=== PATIENT | female | born 1955 | race Hispanic/Latino ===

== ENCOUNTER 2018-05-10 05:57 | Emergency (ER) | payer OTHER ==
--- NOTE | 2018-05-10 07:27 | ED PDOC ---
Arrival/HPI - General Chief Complaint: Lower Extremity Problem/Injury Time Seen by Provider: 05/10/18 07:08 Historian: Patient - History of Present Illness Narrative History of Present Illness (Text): 05/10/18 07:23 Pt is a 62 yo F with no significant PMH presents with b/l LE pain. Patient states that pain has been present for years, however it has worsened over the last few days. She states that pain is from the calf down, greater on the right than the left, and is worsened with ambulation. However, at rest patient states that pain is manageable. Patient also admits to numbness in the right foot and both cold feet bilaterally. Patient denies CP, SOB, n/v/d, abdominal pain, fever , chills, VALENCIA, dizziness, LE edema/swelling, or erythema. No PMD Time/Duration: < week Symptom Onset: Gradual Symptom Course: Unchanged Quality: Throbbing Context: Walking Past Medical History - Provider Review Nursing Documentation Reviewed: Yes - Cardiac Hx Cardiac Disorders: No - Psychiatric Hx Substance Use: No Family/Social History - Physician Review Nursing Documentation Reviewed: Yes Family/Social History: No Known Family HX Smoking Status: Heavy Smoker > 10 Cigarettes Daily Hx Alcohol Use: No Hx Substance Use: No Allergies/Home Meds Allergies/Adverse Reactions: Allergies No Known Allergies Allergy (Verified 05/10/18 07:28) Home Medications: Home Meds Medication Instructions Recorded Confirmed No Known Home Med 05/10/18 05/10/18 Review of Systems - Physician Review All systems were reviewed & negative as marked: Yes - Review of Systems Constitutional: Normal Eyes: Normal ENT: Normal Respiratory: Normal Cardiovascular: Normal Gastrointestinal: Normal Genitourinary Female: Normal Musculoskeletal: Other (b/l LE pain R > L, R foot numbness) Skin: Normal Neurological: Normal Endocrine: Normal Hemo/Lymphatic: Normal Psychiatric: Normal Physical Exam Vital Signs Reviewed: Yes Vital Signs Temp Pulse Resp BP Pulse Ox 05/10/18 09:28 110 H 18 137/92 H 99 05/10/18 06:18 97.5 F L 97 H 18 170/96 H 99 Temperature: Afebrile Blood Pressure: Normal Pulse: Regular Respiratory Rate: Normal Appearance: Positive for: Non-Toxic Pain Distress: Moderate Mental Status: Positive for: Alert and Oriented X 3 - Systems Exam Head: Present: Atraumatic, Normocephalic Pupils: Present: PERRL Extroacular Muscles: Present: EOMI Conjunctiva: Present: Normal Mouth: Present: Moist Mucous Membranes Neck: Present: Normal Range of Motion Respiratory/Chest: Present: Clear to Auscultation, Good Air Exchange. No: Respiratory Distress, Accessory Muscle Use Cardiovascular: Present: Regular Rate and Rhythm, Normal S1, S2. No: Murmurs Abdomen: No: Tenderness, Distention, Peritoneal Signs Back: Present: Normal Inspection Upper Extremity: Present: Normal Inspection. No: Cyanosis, Edema Lower Extremity: Present: CALF TENDERNESS (right). No: Edema, NORMAL PULSES (B/ L DP and TP pulses not palpable or dopplerable) Neurological: Present: GCS=15, CN II-XII Intact, Speech Normal Skin: Present: Warm, Dry, Normal Color. No: Rashes Psychiatric: Present: Alert, Oriented x 3, Normal Insight, Normal Concentration Medical Decision Making ED Course and Treatment: 05/10/18 07:34 62 yo F presents with b/l LE pain R > L. Plan: - CBC, CMP - Coags - Cardiac ISO - VBG shock - EKG - Chest X-Ray - B/L Arterial duplex - Reassess and disposition 05/10/18 07:46 EKG reviewed shows sinus tachycardia, LBBB, rate 105. 05/10/18 09:09 Magnesium 1.5. Repleted with 2 gm Mag sulfate IVPB. Troponin 0.13, patient reassessed, no chest pain, pressure, or palpitations. Cased discussed with inlayer, Dr. Genao, who states she is not a code heart candidate. Sgarbossa's Criteria for NM in Left Bundle Branch Block negative (0). Chest X-Ray reviewed by radiologist; Impression: no active pulmonary disease. 05/10/18 09:22 Lower Extremity Arterial Duplex Findings: The resting CHRIS's are severely abnormal: Unobtainable on right, 0.35 on Left. Impression: Severely abnormal CHRIS and PVR exam at rest. The waveforms at all levels are nearly flat. Findings consistent with aortoiliac disease. Discussed findings with Dr. Brad Restrepo, who states that case can be managed at [facility], requests MRA abdomen/lower extremity runoff, and 1/2 NS at 80 ml/hr. Heparin bolus + drip started. 05/10/18 09:[address] Pike, who agrees with plan and accepts patient under hospitalist service. Case discussed with Dr. An, who agrees with plan and accepts patient for ICU admission. - Lab Interpretations Lab Results: 05/10/18 07:40 05/10/18 07:40 Lab Results 05/10/18 07:40: pO2 41, VBG pH 7.39, VBG pCO2 39.0 L, VBG HCO3 23.6, VBG Total CO2 24.8, VBG O2 Sat (Calc) 84.0 H, VBG Base Excess -1.2 L, VBG Potassium 4.2, Sodium 138.0, Chloride 103.0, Glucose 126 H, Lactate 1.7, FiO2 21.0, Venous Blood Potassium 4.2 05/10/18 07:40: Sodium 141, Chloride 103, Potassium 4.2, Carbon Dioxide 23, Anion Gap 19, BUN 23 H, Creatinine 0.7, Est GFR ( Amer) > 60, Est GFR ( Non-Af Amer) > 60, Random Glucose 123 H, Calcium 10.3, Magnesium 1.5 L, Total Bilirubin 1.0, AST 63 H, ALT 44, Alkaline Phosphatase 57, Lactate Dehydrogenase 586, Total Creatine Kinase 313 H, CK-MB (CK-2) 7.2 H, CK-MB (CK-2) % 2.3 L, Troponin I 0.13 H*, Total Protein 7.3, Albumin 4.4, Globulin 3.0, Albumin/ Globulin Ratio 1.5 05/10/18 07:40: PT 10.1, INR 0.88 L, APTT 24.0 L 05/10/18 07:40: WBC 12.9 H, RBC 4.19, Hgb 14.3, Hct 42.0, MCV 100.2, MCH 34.1, MCHC 34.0, RDW 13.0, Plt Count 198, MPV 11.4 H, Gran % 82.4 H, Lymph % (Auto) 8.3 L, [place] % (Auto) 8.8 H, Eos % (Auto) 0.3 L, Baso % (Auto) 0.2, Gran # 10.66 H, Lymph # (Auto) 1.1 L, [place] # (Auto) 1.1 H, Eos # (Auto) 0.0, Baso # (Auto) 0.02 - RAD Interpretation Radiology Orders: 05/10/18 07:30 LOWER EXT ART NON-INV COMPL [US] Stat 05/10/18 07:32 CXR [CHEST PORTABLE] [RAD] Stat 05/10/18 09:27 MRA LOW EXT&ABD W/WO BI BUNDLE [MRI] Stat - Medication Orders Current Medication Orders: Sodium Chloride (Sodium Chloride 0.45%) 1,000 mls @ 80 mls/hr IV .[id number] [facility] Last Admin: 05/10/18 09:38 Dose: 80 mls/hr eMAR Start Stop Document 05/10/18 09:38 SF (Rec: 05/10/18 09:38 [id number] Intravenous Solution Start Date 05/10/18 Start Time 09:38 End Date 05/10/18 Heparin Sodium/Sodium Chloride (Heparin 41318 Units/250ml 1/2 Normal Saline) 25 ,000 units in 250 mls @ 7.838 mls/hr IV .Q24H PRN; Protocol; 18 UNITS/KG/HR PRN Reason: ADJUST RATE PER PROTOCOL Last Admin: 05/10/18 10:14 Dose: 18 units/kg/hr, 7.838 mls/hr eMAR Start Stop Document 05/10/18 10:14 SF (Rec: 05/10/18 10:16 [id number] Intravenous Solution Start Date 05/10/18 Start Time 10:16 Titration Intervention Document 05/10/18 10:14 SF (Rec: 05/10/18 10:16 [id number] Titration Intake Waste Amount 0 Container Volume 250 Titration Dosing Titration Dose 18 IV Rate 7.838 Intake/Decrease Started Discontinued Medications Aspirin (Aspirin) 325 mg PO STAT STA Stop: 05/10/18 09:51 Last Admin: 05/10/18 10:00 Dose: 325 mg Heparin Sodium (Porcine) (Heparin) 3,500 units 80 units/kg (3500 units) IV ONCE ONE PRN Reason: Protocol Stop: 05/10/18 09:40 Last Admin: 05/10/18 10:14 Dose: 3,500 units eMAR Start Stop Document 05/10/18 10:14 SF (Rec: 05/10/18 10:14 SF [id number][facility] Intravenous Solution Start Date 05/10/18 Start Time 10:10 Magnesium Sulfate (Magnesium Sulfate 2 Gm/50 Ml Water) 2 gm in 50 mls @ 50 mls/ hr IVPB ONCE ONE Stop: 05/10/18 09:52 Last Admin: 05/10/18 09:30 Dose: 50 mls/hr eMAR Start Stop Document 05/10/18 09:30 SF (Rec: 05/10/18 09:30 SF [id number]) Intravenous Solution Start Date 05/10/18 Start Time 09:30 End Date 05/10/18 End time 10:30 Total Infusion Time 60 Lorazepam (Ativan) 0.5 mg IVP ONCE ONE PRN Reason: Protocol Stop: 05/10/18 10:25 Last Admin: 05/10/18 10:34 Dose: 0.5 mg IVP Administration Document 05/10/18 10:34 SF (Rec: 05/10/18 10:35 SF [facility] [place] [id number]) Charges for Administration # of IVP Administrations 1 Morphine Sulfate (Morphine) 2 mg IVP STAT STA Stop: 05/10/18 09:09 Last Admin: 05/10/18 09:29 Dose: 2 mg MAR Pain Assessment Document 05/10/18 09:29 SF (Rec: 05/10/18 09:29 SF [facility] [place] [id number]) Pain Reassessment Is this a pain reassessment? Yes Sleep Is patient sleeping during reassessment? No Presence of Pain Presence of Pain Yes IVP Administration Document 05/10/18 09:29 SF (Rec: 05/10/18 09:29 SF [facility] [place] [id number]) Charges for Administration # of IVP Administrations 1 Disposition/Present on Arrival - Present on Arrival Any Indicators Present on Arrival: No History of DVT/PE: No History of Uncontrolled Diabetes: No Urinary Catheter: No History of Decub. Ulcer: No History Surgical Site Infection Following: None - Disposition Have Diagnosis and Disposition been Completed?: Yes Diagnosis: PAD (peripheral artery disease), NSTEMI (non-ST elevated myocardial infarction) Disposition: HOSPITALIZED Disposition Time: 11:40 Patient Plan: Admission, ICU Condition: STABLE
[2018-05-10 08:06] LABS: BASO # 0.02 K/mm3 (0.0-2.0); BASO % 0.2 % (0.0-3.0); EOS % 0.3 % (1.5-5.0); GRAN # 10.66 (1.4-6.5); GRAN % 82.4 % (50.0-68.0); HEMOGLOBIN 14.3 g/dL (12.0-16.0); LYMPH # 1.1 (1.2-3.4); LYMPH % 8.3 % (22.0-35.0); MEAN CELL VOLUME 100.2 fl (80.0-105.0); MEAN CORPUSCULAR HEMOGLOBIN 34.1 pg (25.0-35.0); MEAN PLATELET VOLUME 11.4 fl (7.0-11.0); MONO # 1.1 (0.1-0.6); MONO % 8.8 % (1.0-6.0); RBC 4.19 10^6/uL (3.5-6.1); WHITE BLOOD COUNT 12.9 10^3/ul (4.5-11.0)
[2018-05-10 08:07] LABS: VENOUS BLOOD GAS BASE EXCESS -1.2 mmol/L (0.0-2.0); VENOUS BLOOD GAS PO2 41 mm/Hg (30-55); VENOUS BLOOD PH 7.39 (7.32-7.43)
[2018-05-10 08:16] LABS: ALB/GLOB RATIO 1.5 (1.1-1.8); ALBUMIN 4.4 g/dL (3.0-4.8); ALT/SGPT 44 U/L (7-56); AST/SGOT 63 U/L (14-36); BLOOD UREA NITROGEN 23 mg/dL (7-21); CALCIUM 10.3 mg/dL (8.4-10.5); GFR AFRICAN-AMERICAN > 60; GFR NON-AFRICAN AMERICAN > 60
[2018-05-10 08:23] LABS: INR 0.88 (0.93-1.08); PROTHROMBIN TIME 10.1 SECONDS (9.4-12.5)
[2018-05-10 08:52] LABS: CK MB% 2.3 % (2.5-3.0); CK-MB 7.2 ng/mL (0.0-3.6); TROPONIN I 0.13 ng/mL
[2018-05-10] MEDS ORDERED: Magnesium Sulfate 2 gm/50 ml 2 GM/50 ML BAG IVPB ONE (08:53)
[2018-05-10] MEDS ORDERED: Morphine 2 mg/ml ISec IVP STA (09:08)
[2018-05-10] MEDS ORDERED: Heparin25000 units/250ml 1/2NS 25,000 UNITS/250 ML BAG IV PRN ×2 (09:15→09:38)
--- NOTE | 2018-05-10 09:20 | US ---
PROCEDURE: Lower extremity CHRIS exam HISTORY: Peripheral vascular disease with ischemic pain PHYSICIAN(S): Brad Restrepo MD. FINDINGS: The resting CHRIS's are severely abnormal: Unobtainable on right, 0.35 on 1 The brachial systolic pressures are symmetric. There is significant 90 mm gradient between the arm and high thigh pressures bilaterally. The high thigh PVR waveforms are severely blunted. Findings are consistent with aortoiliac disease. The calf PVR waveforms severely blunted and nearly flat. The ankle and metatarsal waveforms are severely abnormal and nearly flat IMPRESSION: 1. Severely abnormal CHRIS and PVR exam at rest. The waveforms at all levels are nearly flat. Findings are consistent with aortoiliac disease.
[2018-05-10] MEDS ORDERED: Sodium Chloride 0.45% 1,000 ML IV SCH (09:45)
--- NOTE | 2018-05-10 10:24 | RAD ---
HISTORY: medical clearance COMPARISON: No prior. FINDINGS: LUNGS: The lungs are well inflated and clear. PLEURA: No significant pleural effusion identified, no pneumothorax apparent. CARDIOVASCULAR: Normal. OSSEOUS STRUCTURES: No significant abnormalities. VISUALIZED UPPER ABDOMEN: Normal. OTHER FINDINGS: None. IMPRESSION: No active pulmonary disease.
[2018-05-10] MEDS ORDERED: Gadodiamide 287 MG/ML VIAL (20ML) IV ONE (10:52)
[2018-05-10] MEDS ORDERED: Morphine 2 mg/ml ISec IVP PRN (13:32)
--- NOTE | 2018-05-10 13:41 | CP.PCM.CON ---
History of Present Illness - History of Present Illness History of Present Illness: PGY-[address] An ICU Consult: PAD Ms Navarrete, 62 F heavy smoker with chronic claudication, who hasnt been seeing doctors for more than 15 years, was brought in by EMS s/p a fall due to b/l LE pain and numbness. Patient states that pain has been present for years, however it has worsened over the last few days. Today, while she walked to a bus stop at work today, the bilateral foot/calf/leg pain was intolerable associated with toe numbness. Then she fell, landed on her buttock. She states that pain is from the calf down, greater on the right than the left, and is worsened with ambulation. The pain at rest is manageable. In ED: CHRIS - R unobtainable; L 0.35 Now,. she is on heparin gtt. 1/2 NS@Pending MRA lower extremitiy runoff ROS: (+) numbness b/l feet (+) both cold feet bilaterally. Denies CP, SOB, n/v/d, abdominal pain, fever, chills, VALENCIA, dizziness, LE edema/swelling, or erythema. PMH: Active smoker PSH: None FH: denies SH: 1.5 ppd x 20 years, 4-5 beers weekly, denies drug All: NKDA Med: none PMD: none Past Patient History - Past Social History Smoking Status: Heavy Smoker > 10 Cigarettes Daily - CARDIAC Hx Cardiac Disorders: No - PSYCHIATRIC Hx Substance Use: No - SURGICAL HISTORY Hx Surgeries: No Meds Allergies/Adverse Reactions: Allergies Allergy/AdvReac Type Severity Reaction Status Date / Time No Known Allergies Allergy Verified 05/10/18 11:44 - Medications Medications: Current Medications Aspirin (Aspirin Chewable) 81 mg PO DAILY [facility] Atorvastatin Calcium (Lipitor) 80 mg PO DIN [facility] Sodium Chloride (Sodium Chloride 0.45%) 1,000 mls @ 80 mls/hr IV .[id number] [facility] Last Admin: 05/10/18 09:38 Dose: 80 mls/hr Heparin Sodium/Sodium Chloride (Heparin 61624 Units/250ml 1/2 Normal Saline) 25 ,000 units in 250 mls @ 7.838 mls/hr IV .Q24H PRN; Protocol; 18 UNITS/KG/HR PRN Reason: ADJUST RATE PER PROTOCOL Last Admin: 05/10/18 10:14 Dose: 18 units/kg/hr, 7.838 mls/hr Metoprolol Tartrate (Lopressor) 25 mg PO 0800,1800 [facility] Morphine Sulfate (Morphine) 2 mg IVP Q4H PRN PRN Reason: Pain, severe (8-10) Results - Vital Signs Recent Vital Signs: Last Vital Signs Temp 97.5 F L 05/10/18 06:18 Pulse 111 H 05/10/18 13:05 Resp 19 05/10/18 13:05 BP 124/77 05/10/18 13:05 Pulse Ox 99 05/10/18 13:05 - Labs Result Diagrams: 05/10/18 07:40 05/10/18 07:40
[2018-05-10 14:13] VITALS: BMI 29.2
[2018-05-10] MEDS ORDERED: Pneumococcal 23-Valent Vaccine IM ONE (14:13)
--- NOTE | 2018-05-10 15:17 | CP.PCM.PN ---
<Arturo Little - Last Filed: 05/10/18 15:23> Subjective - Date & Time of Evaluation Date of Evaluation: 05/10/18 Time of Evaluation: 15:14 - Subjective Subjective: CC: Lower extremity pain R>L Patient seen and evaluated in ED this AM. Patient reports 3 week history of progressive lower extremity pain. Patient indicates that she has chronic lower extremity pain, primarily aggravated with walking. Patient indicates that 3 weeks prior to presentation patient reports she was able to walk about 2 blocks. Patient indicates pain at nights with burning and shooting pains at rest. Patient denies seeing a primary care physician for the past 20 years. Patient reported chest pain intermittently and associated with food intake. She described the pain as mid epigastric, burning, and exacerbated by stress. Patient reports only being able to walk across the room at this time before the pain becomes too unbearable. Patient reports at least 80 pack year history and no follow up with primary care physician. While in ED patient had bilateral CHRIS of the lower extremity showing severe vessel disease, was placed on heparin drip and taken for MRA of lower extremities. Patient was notified of all current labs and plan for care involving potential for inpatient procedures and possible transfer to another facility were discussed in detail with patient and family. Patient was in understanding and agreeable and able to comprehend conversation with appropriate insight. PMH: Denies PSH: SOCHx: Tobacco: 2 PPD for 40 plus years, ETOH: >14 drinks a week, ID: Denies, Lives with common law and daughter ALL: NKDA MEDS: Denies PMD: none Objective - Vital Signs/Intake and Output Vital Signs (last 24 hours): Temp Pulse Resp BP Pulse Ox 97.5 F L 111 H 18 124/77 99 05/10/18 13:10 05/10/18 13:10 05/10/18 13:10 05/10/18 13:10 05/10/18 13:05 - Medications Medications: Current Medications Aspirin (Aspirin Chewable) 81 mg PO DAILY [facility] Atorvastatin Calcium (Lipitor) 80 mg PO DIN [facility] Sodium Chloride (Sodium Chloride 0.45%) 1,000 mls @ 80 mls/hr IV .[id number] [facility] Last Admin: 05/10/18 09:38 Dose: 80 mls/hr Heparin Sodium/Sodium Chloride (Heparin 34590 Units/250ml 1/2 Normal Saline) 25 ,000 units in 250 mls @ 7.838 mls/hr IV .Q24H PRN; Protocol; 18 UNITS/KG/HR PRN Reason: ADJUST RATE PER PROTOCOL Last Admin: 05/10/18 10:14 Dose: 18 units/kg/hr, 7.838 mls/hr Metoprolol Tartrate (Lopressor) 25 mg PO 0800,1800 [facility] Morphine Sulfate (Morphine) 2 mg IVP Q4H PRN PRN Reason: Pain, severe (8-10) - Labs Labs: PT 10.1 SECONDS (9.4-12.5) 05/10/18 07:40 INR 0.88 (0.93-1.08) L 05/10/18 07:40 APTT 24.0 Seconds (25.1-36.5) L 05/10/18 07:40 - Constitutional Appears: Older Than Stated Age - Head Exam Head Exam: ATRAUMATIC, NORMAL INSPECTION - Eye Exam Eye Exam: EOMI, PERRL - Neck Exam Neck Exam: Full ROM - Respiratory Exam Respiratory Exam: Clear to Ausculation Bilateral, NORMAL BREATHING PATTERN. absent: Wheezes - Cardiovascular Exam Cardiovascular Exam: REGULAR RHYTHM, +S1, +S2 - GI/Abdominal Exam GI & Abdominal Exam: Soft, Normal Bowel Sounds. absent: Tenderness - Extremities Exam Extremities Exam: Tenderness. absent: Normal Capillary Refill, Pedal Edema Additional comments: Bilateral lower extremities without palpable pulses, cool to touch up to knee b/ l, varicose veins, absence of hair appreciated b/l Patient with intact feeling and sensation in legs b/l - Neurological Exam Neurological Exam: Alert, Awake, Oriented x3 Neuro motor strength exam: Left Upper Extremity: 5, Right Upper Extremity: 5, Left Lower Extremity: 5, Right Lower Extremity: 5 - Psychiatric Exam Psychiatric exam: Anxious - Skin Skin Exam: Cyanosis, Dry. absent: Pallor, Petechiae, Warm Assessment and Plan - Assessment and Plan (Free Text) Plan: 1. Critical Limb ischemia - CHRIS showing severe disease bilateral - lower extremity MRA pending final read - Reach out to IR and vascular surgery - Patient will need cardiac clearance 2. Unstable angina/NSTEMI - Elevated troponin on admission 0.13 - EKG showing LBBB, unclear if new without prior ekg to compare - Heparin gtt - Aspirin, metoprolol, Lipitor - Cardiology consultation DISPO: Patient with family at bedside was consulted about her current medical conditions and proposed further work up and management. Patient and family requested to be transferred to a facility where both the cardiac work up/ clearance and potential vascular surgery would be able to be preformed during same stay. Patient was transferred to [facility]. Case and plan discussed with attending <Gita Pike - Last Filed: 05/11/18 15:36> Objective - Vital Signs/Intake and Output Vital Signs (last 24 hours): Temp Pulse Resp BP Pulse Ox 98.1 F 80 17 130/78 97 05/10/18 16:12 05/10/18 16:12 05/10/18 16:12 05/10/18 16:12 05/10/18 16:41 - Labs Labs: 05/10/18 07:40 05/10/18 07:40 PT 10.1 SECONDS (9.4-12.5) 05/10/18 07:40 INR 0.88 (0.93-1.08) L 05/10/18 07:40 APTT 24.0 Seconds (25.1-36.5) L 05/10/18 07:40 Attending/Attestation - Attestation I have personally seen and examined this patient.: Yes I have fully participated in the care of the patient.: Yes I have reviewed all pertinent clinical information, including history, physical exam and plan: Yes Notes (Text): 05/11/18 15:36 Medical record note made by the resident after discussion with my direction and input after the patient was personally seen and examined by me. I have reviewed the chart and agree that the record accurately reflects by personal performance of the history, physical exam, data review, and medical decision-making, in the course for the patient. I have also personally directed the plan of care.
[2018-05-10 15:49] VITALS: O2SAT 97
[2018-05-10 16:15] VITALS: BP 130/78; PULSE 80; RESP 17; TEMP 98.1
--- NOTE | 2018-05-10 22:43 | CARD ---
APPROVED REPORT EKG Measurement Heart [id number] DE 120P-7 [id number] <Conclusion> Sinus tachycardia Left bundle branch block Abnormal ECG
== END 2018-05-10 16:41 | disposition short-term general hospital (02) ==
LOC: ED 05:57 → UNDOADMIN 10:00 → ERH 10:00
DX: I73.9 Peripheral vascular disease, unspecified (principal); I21.4 Non-ST elevation (NSTEMI) myocardial infarction; F17.210 Nicotine dependence, cigarettes, uncomplicated
CPT/HCPCS: 71045; 73725; 74185; 80053; 82550; 82553; 82803; 83036; 83615; 83735; 84484; 85025; 85610; 85730; 93005; 93923; 96365; 96375; 99285; A9579; J1644; J2060; J2270; J7030